=== PATIENT | male | born 2000 | race Native Hawaiian/Other Pacific Islander ===

== ENCOUNTER → 2024-10-06 | Outpatient (CLI) | payer OTHER | LOC: M RAD 06:22 | PROVIDERS: ATTEND Orthopaedic Surgery Hand Surgery | DX: S62.002P Unspecified fracture of navicular [scaphoid] bone of left wrist, subsequent encounter for fracture with malunion (principal) ==

== ENCOUNTER 2024-12-07 06:00 | Day surgery (SDC) | payer OTHER ==
[~2024-12-07] VITALS: Ht 175.3 cm; Wt 99.5 kg
[2024-12-07] MEDS ORDERED: NS (Normal Saline) 0.9% 1,000 ML IV SCH ×2 (06:30→10:45)
[2024-12-07] MEDS ORDERED: ROCURONIUM BROMIDE 50MG/5ML VIAL As Ordered ONE (07:27)
[2024-12-07] MEDS ORDERED: ONDANSETRON 4MG 2ML VIAL As Ordered ONE (07:27)
[2024-12-07] MEDS ORDERED: propofoL 200 MG/20 ML VIAL As Ordered ONE (07:27)
[2024-12-07] MEDS ORDERED: LIDOCAINE 2% 100MG/5ML SDV (FOR ANES.) As Ordered ONE (07:27)
[2024-12-07] MEDS ORDERED: MIDAZOLAM INJ 2MG/2ML VIAL As Ordered ONE (07:28)
[2024-12-07] MEDS ORDERED: fentaNYL 100 MCG/2 ML INJECTION As Ordered ONE (07:28)
[2024-12-07] MEDS: ROPIvacaine 0.5% 30ML VIAL PN ONE (07:32)
[2024-12-07] MEDS: MIDAZOLAM INJ 2MG/2ML VIAL IV PRN (07:32)
[2024-12-07] MEDS: fentaNYL 100 MCG/2 ML INJECTION IV PRN (07:32)
[2024-12-07] MEDS: dexAMETHasone 10MG/1ML VIAL PRES.FREE PN ONE (07:35)
[2024-12-07] MEDS: LIDOCAINE 1% SDV 5ML VIAL PN ONE (07:35)
[2024-12-07] MEDS ORDERED: ceFAZolin SOD 2 GM in IV 1 EA IV ONE (07:45)
[2024-12-07] MEDS ORDERED: ceFAZolin 2 GM/D5W 50 ML IV BAG As Ordered ONE (07:50)
[2024-12-07] MEDS ORDERED: dexmedeTOMIDine (4MCG/ML)200MCG/50ML BTL (PRECEDEX) As Ordered ONE (08:08)
[2024-12-07] MEDS ORDERED: ACETAMINOPHEN 1000MG/100ML IV BAG As Ordered ONE (08:28)
[2024-12-07] MEDS ORDERED: SUGAMMADEX SODIUM 500 MG/5 ML VIAL (BRIDION) As Ordered ONE (08:39)
[2024-12-07] MEDS ORDERED: SEVOFLURANE INHAL SOLN 250 ML BTL As Ordered ONE (08:54)
[2024-12-07] MEDS ORDERED: KETOROLAC 60MG 2ML VIAL As Ordered ONE (08:54)
[2024-12-07] MEDS ORDERED: ePHEDrine SULFATE 25 MG/5 ML(5MG/ML) SYRINGE As Ordered ONE (08:56)
[2024-12-07] MEDS: BACITRACIN OINTMENT 30GM TUBE As Ordered ONE (10:20)
[2024-12-07] MEDS ORDERED: ONDANSETRON 4MG 2ML VIAL IV PRN (10:45)
[2024-12-07] MEDS ORDERED: oxyCODONE 5MG TAB PO PRN (10:45)
[2024-12-07] MEDS ORDERED: fentaNYL 100 MCG/2 ML INJECTION IV PRN (10:45)
[2024-12-07] MEDS ORDERED: HYDROMORPHONE HCL 0.5 MG/ 0.5 ML SYRINGE IV PRN (10:45)
[2024-12-07] MEDS ORDERED: PERC5TAB12 PO (10:50)
[2024-12-07 12:01] VITALS: BP 138/73; TEMP 97.2; O2SAT 98
== END 2024-12-07 13:15 | disposition home or self-care (01) ==
LOC: M SDC 06:00
PROVIDERS: ATTEND Orthopaedic Surgery Hand Surgery
DX: S62.002K Unspecified fracture of navicular [scaphoid] bone of left wrist, subsequent encounter for fracture with nonunion (principal); X58.XXXD Exposure to other specified factors, subsequent encounter; R06.83 Snoring
CPT/HCPCS: 25440; 76000; C1713; C1762; J0131; J0665; J0690; J1100; J1885; J2250; J2405; J2795; J3010

== ENCOUNTER → 2024-12-16 | Outpatient (CLI) | payer OTHER ==
[~2024-12-16] MED LIST: PERC5TAB12 PO
== END ==
LOC: M SOG 08:06
PROVIDERS: ATTEND Physician Assistant
DX: S62.002K Unspecified fracture of navicular [scaphoid] bone of left wrist, subsequent encounter for fracture with nonunion (principal)

== ENCOUNTER → 2025-01-15 | Outpatient (CLI) | payer OTHER | LOC: M SOG 08:02 | PROVIDERS: ATTEND Physician Assistant | DX: S62.002K Unspecified fracture of navicular [scaphoid] bone of left wrist, subsequent encounter for fracture with nonunion (principal) ==

== ENCOUNTER → 2025-02-16 | Outpatient (CLI) | payer OTHER | LOC: M SOG 07:49 | PROVIDERS: ATTEND Physician Assistant | DX: S62.002K Unspecified fracture of navicular [scaphoid] bone of left wrist, subsequent encounter for fracture with nonunion (principal) ==

== ENCOUNTER → 2025-06-08 | Outpatient (CLI) | payer OTHER | LOC: M SOG 06:47 | PROVIDERS: ATTEND Physician Assistant | DX: S62.002D Unspecified fracture of navicular [scaphoid] bone of left wrist, subsequent encounter for fracture with routine healing (principal); W18.30XD Fall on same level, unspecified, subsequent encounter ==